=== PATIENT | female | born 1960 | race African-American/Black ===

== ENCOUNTER 2024-06-28 22:12 | Emergency (ER) | payer MEDICAID ==
[~2024-06-28] VITALS: Ht 170.2 cm; Wt 75.0 kg
[2024-06-28] MEDS: IPRATROPIUM BROMIDE (0.02%) 0.5MG/2.5ML NEB HHN STA (22:45)
[2024-06-28] MEDS: ALBUTEROL (0.083%) 2.5MG/3ML NEB HHN STA (22:46)
[2024-06-28 22:47] VITALS: PULSE 100; RESP 20; O2SAT 98
[2024-06-28 22:57] LABS: BASOPHILS % 0.4 % (0.0-2.0); DIFFERENTIAL COMMENT 0; HEMOGLOBIN. 12.7 g/dL (12.0-16.0); MEAN CORPUSCULAR HEMOGLOBIN 30.2 pg (28.0-32.0); MEAN CORPUSCULAR HGB CONC 31.8 g/dL (31.0-37.0); MEAN PLATELET VOLUME 9.6 fl (7.4-10.4); MONOCYTES % 7.4 % (2.0-8.0); NEUTROPHILS % 59.2 % (40.0-76.0); PLATELET 248 x1000/uL (130-400); RED BLOOD CELL COUNT 4.21 mill/uL (4.2-5.4); RED CELL DISTRIBUTION WIDTH 16.5 % (11.6-14.6); WHITE BLOOD COUNT 12.1 x1000/uL (4.5-11.0)
[2024-06-28 23:04] LABS: INR 1.3; PARTIAL THROMBOPLASTIN TIME 23.9 sec (23.4-31.0); PROTHROMBIN TIME 13.8 sec (9.6-11.0)
[2024-06-28 23:07] LABS: CHLORIDE 110 mEq/L (98-107); POTASSIUM 4.3 mEq/L (3.5-5.1); SODIUM 142 mEq/L (136-145)
[2024-06-28 23:08] LABS: CARBON DIOXIDE 21 mEq/L (21-32)
[2024-06-28 23:09] LABS: CALCIUM 9.8 mg/dL (8.7-10.4)
[2024-06-28 23:13] LABS: CREATININE 0.9 mg/dL (0.6-1.0); GLUCOSE 164 mg/dL (70-105); UREA NITROGEN BLOOD 10 mg/dL (9-23)
[2024-06-28 23:14] LABS: TROPONIN I HIGH SENSITIVITY 18 ng/L (3.0-34)
[2024-06-28 23:33] LABS: ETHANOL BLOOD < 10 mg/dL (<10)
[2024-06-29] MEDS ORDERED: MAGNESIUM/ALUMINUM HYDROXIDE/SIMETHICONE 30ML UDC PO PRN (02:00)
[2024-06-29] MEDS ORDERED: ONDANSETRON HCL 4MG/2ML INJ IV PRN (02:00)
[2024-06-29] MEDS ORDERED: DEXTROSE 50% WATER 50ML SYRINGE IV PRN (02:00)
[2024-06-29] MEDS ORDERED: NITROGLYCERIN 0.4MG TABLET SL SL PRN (02:00)
[2024-06-29] MEDS ORDERED: ACETAMINOPHEN 325MG TABLET PO PRN (02:00)
[2024-06-29] MEDS ORDERED: GUAIFENESIN 200MG/10ML SUGAR FREE UDC PO PRN (02:00)
[2024-06-29] MEDS ORDERED: CLONIDINE 0.1MG TABLET PO PRN (02:00)
[2024-06-29] MEDS: FUROSEMIDE 40MG/4ML VIAL IVP NR (02:36)
[2024-06-29 05:12] VITALS: TEMP 36.8; O2SAT 99
[2024-06-29 06:36] VITALS: BP 149/96; TEMP 98.2
[2024-06-29 06:37] LABS: CLARITY URINE CLEAR (CLEAR); COLOR URINE YELLOW (YELLOW); GLUCOSE URINE NEGATIVE (NEGATIVE); KETONES URINE NEGATIVE (NEGATIVE); LEUKOCYTE ESTERASE URINE 3+ (NEGATIVE); NITRITE URINE NEGATIVE (NEGATIVE); OCCULT BLOOD URINE 1+ (NEGATIVE); PROTEIN URINE NEGATIVE (NEGATIVE); SPECIFIC GRAVITY URINE 1.007 (1.005-1.030)
[2024-06-29] MEDS: SPIRONOLACTONE 25MG TABLET PO SCH (07:00)
[2024-06-29] MEDS: EMPAGLIFLOZIN 10MG TABLET PO SCH (07:00)
[2024-06-29 07:01] LABS: *AMPHETAMINES SCREEN URINE NEGATIVE (NEGATIVE); *BARBITURATES SCREEN URINE NEGATIVE (NEGATIVE); *BENZODIAZEPINES SCREEN URINE NEGATIVE (NEGATIVE); *COCAINE SCREEN URINE PRESUMPTIVE POSITIVE (NEGATIVE); CANNABINOID URINE SCREEN NEGATIVE (NEGATIVE); ECSTASY MDMA SCREEN URINE NEGATIVE (NEGATIVE); METHADONE URINE SCREEN NEGATIVE (NEGATIVE); OPIATES URINE SCREEN NEGATIVE (NEGATIVE); PHENCYCLIDINE URINE SCREEN NEGATIVE (NEGATIVE)
[2024-06-29 07:10] LABS: SQUAMOUS EPITHELIAL CELL URINE 1+ /lpf (RARE/1+); WBC URINE 25-50 /hpf (0-2)
[2024-06-29 07:11] LABS: BACTERIA URINE 1+; YEAST URINE NONE SEEN
[2024-06-29] MEDS ORDERED: INSULIN LISPRO 100 UNITS/ML SUBCUT SCH (08:20)
[2024-06-29] MEDS: BUDESONIDE 0.5MG/2ML NEB HHN SCH (08:22)
[2024-06-29 08:25] VITALS: PULSE 92; RESP 18
[2024-06-29] MEDS: IPRATROPIUM BROMIDE (0.02%) 0.5MG/2.5ML NEB HHN SCH (08:25)
[2024-06-29] MEDS ORDERED: CEFTRIAXONE 2GM/50ML 50 ML IV NR (08:30)
[2024-06-29] MEDS ORDERED: LOSARTAN 25 MG TABLET PO SCH (09:00)
[2024-06-29] MEDS ORDERED: FUROSEMIDE 40MG/4ML VIAL IV SCH (09:00)
[2024-06-29] MEDS ORDERED: BLOOD SUGAR DIAGNOSTIC STRIP TEST SCH (09:00)
[2024-06-29] MEDS ORDERED: CARVEDILOL 12.5MG TABLET PO SCH (09:00)
[2024-06-29] MEDS ORDERED: ASPIRIN 81MG EC TABLET PO SCH (09:00)
[2024-06-29] MEDS ORDERED: APIXABAN 5 MG TABLET PO SCH (09:00)
[2024-06-29] MEDS ORDERED: FAMOTIDINE 20MG TABLET PO SCH (21:00)
== END 2024-06-29 08:50 | disposition left against medical advice (07) ==
LOC: ER 22:12 → CANBEDREQ 06-29 08:53
DX: E78.5 Hyperlipidemia, unspecified (principal); I50.22 Chronic systolic (congestive) heart failure; J45.901 Unspecified asthma with (acute) exacerbation; E11.9 Type 2 diabetes mellitus without complications; I11.0 Hypertensive heart disease with heart failure; Z79.01 Long term (current) use of anticoagulants; Z79.82 Long term (current) use of aspirin; Z79.899 Other long term (current) drug therapy; Z20.822 Contact with and (suspected) exposure to COVID-19
CPT/HCPCS: 80048; 80320; 83880; 85025; 85610; 85730; 87040; 84484; 36415 ×2; 71045; 94640 ×2; 93005; 99285; 80305; 81003; 85379; 87086; 87804 ×2; 94070; 96374; 87426; Z7610 ×4; J1940; J7626; J0696; G0480